=== PATIENT | female | born 1955 | race Caucasian/White ===

== ENCOUNTER 2017-11-18 18:00 | Emergency (ER) | payer OTHER ==
--- NOTE | 2017-11-18 19:25 | UC ---
Abdominal Pain Female HPI - HPI Summary HPI Summary: Pt c/o LLQ pain that began last night. Denies fever or chills, urinary symptoms , diarrhea, nausea and vomiting. Has history of diverticulitis. Last colonoscopy 20 years ago. - History of Current Complaint Chief Complaint: UCAbdominalPain Stated Complaint: ABDOMINAL PAIN Time Seen by Provider: 11/18/17 19:04 Hx Obtained From: Patient ?: No Onset/Duration: Sudden Onset, Lasting Days Timing: Constant Severity Initially: Mild Severity Currently: Moderate Pain Intensity: 6 Location: Discrete At: LLQ Radiates: No Radiates to: LLQ Character: Cramping, Dull, Sharp Aggravating Factor(s): Food, Movement, Deep Breaths Alleviating Factor(s): Nothing Associated Signs and Symptoms: Positive: Decreased Appetite - Risk Factors Ectopic Risk Factor: Negative Ovarian Torsion Risk Factor: Negative Allergies/Adverse Reactions: Allergies Allergy/AdvReac Type Severity Reaction Status Date / Time No Known Allergies Allergy Verified 11/18/17 18:41 Home Medications: Home Medications Eye Drops For Glaucoma 11/18/17 [History] PMH/Surg Hx/FS Hx/Imm Hx Previously Healthy: Yes GI/ History: Diverticulitis - Surgical History Surgical History: Yes Surgery Procedure, Year, and Place: tubal ligation. foot surgery - Family History Known Family History: Positive: Cardiac Disease - Social History Occupation: Retired Lives: With Family Alcohol Use: Occasionally Substance Use Type: None Smoking Status (MU): Never Smoked Tobacco Have You Smoked in the Last Year: No Review of Systems Constitutional: Negative Skin: Negative Eyes: Negative ENT: Negative Respiratory: Negative Cardiovascular: Negative Gastrointestinal: Abdominal Pain Genitourinary: Negative Motor: Negative Neurovascular: Negative Musculoskeletal: Negative Neurological: Negative Psychological: Negative Is Patient Immunocompromised?: No All Other Systems Reviewed And Are Negative: Yes Physical Exam Triage Information Reviewed: Yes Appearance: Pain Distress Vital Signs: Initial Vital Signs Temp 98.4 F 11/18/17 18:35 Pulse 91 11/18/17 18:35 Resp 17 11/18/17 18:35 BP 112/91 11/18/17 18:35 Pulse Ox 100 11/18/17 18:35 Vital Signs Reviewed: Yes Eye Exam: Normal ENT: Positive: Hearing grossly normal Dental Exam: Normal Neck: Positive: Supple Respiratory Exam: Normal Cardiovascular Exam: Normal Abdominal Exam: Other Abdomen Description: Positive: Other: - LLQ pain Musculoskeletal Exam: Normal Neurological Exam: Normal Psychological Exam: Normal Skin Exam: Normal Diagnostics - Radiology No standard instances Radiology Interpretation Completed By: Radiologist - 1. CT findings are most consistent with diverticulitis involving the descending colon and extending into the proximalmost sigmoid colon. Particularly if the patient has never had a screening colonoscopy, direct visualization of the colon is advised after the patient's acute symptoms have resolved. 2. No renal calculi or signs of obstructive uropathy. 3. Additional chronic and degenerative changes noted in the body the report unlikely to be related to the patient's current presentation. Abd Pain Female Course/Dx - Differential Dx/Diagnosis Differential Diagnosis: Diverticulitis, Urinary Tract Infection Provider Diagnoses: DIVERTICULITIS Discharge - Sign-Out/Discharge Documenting (check all that apply): Discharge/Admit/Transfer - Discharge Plan Condition: Stable Disposition: HOME Prescriptions: metroNIDAZOLE * 500 mg PO Q8H #30 tablet Sulfamethox/Trimethoprim DS* [Bactrim DS 800/160 TAB*] 1 tab PO Q12H #20 tab Patient Education Materials: Diverticulitis (ED), Diverticulitis Diet (ED) Referrals: Dina Cruz MD [Primary Care Provider] - As Soon As Possible Additional Instructions: PLEASE NOTE THAT WE ARE RECOMMENDING THAT YOU GO DIRECTLY TO THE [facility]LO[facility] EMERGENCY DEPARTMENT FOR FURTHER EVALUATION AND TREATMENT IF YOUR SYMPTOMS WORSEN. - Billing Disposition and Condition Condition: STABLE Disposition: Home
--- NOTE | 2017-11-18 20:13 | RAD ---
CLINICAL HISTORY: Left flank pain COMPARISON: None TECHNIQUE: Noncontrast CT examination of the abdomen and pelvis from the lung bases through the initial tuberosities. FINDINGS: VISUALIZED LUNG BASES: The visualized lung bases are grossly clear. There is no pleural effusion. ABDOMEN AND PELVIS: Evaluation of the solid organs and vasculature is limited without intravenous contrast. The liver, spleen, pancreas and adrenal glands are grossly normal in appearance. The gallbladder is normal. The kidneys are normal in appearance without focal mass, calcification or signs of hydronephrosis. Evaluation of the gastrointestinal tract is limited without oral contrast. The small and large bowel are not distended.The patient's normal appendix is identified in the right lower quadrant (coronal image 50). Beginning in the distal colon there are diverticula some with inspissated contrast. There is wall thickening involving the distal descending colon measuring 8 mm in thickness with surrounding infiltration of the peritoneal fat. There is no macro perforation of the bowel or drainable fluid collection.. There is no gross retroperitoneal or mesenteric lymphadenopathy. The pelvic viscera is normal in appearance. The abdominal aorta and iliac arteries are normal in course and diameter. Degenerative changes include multilevel loss of intervertebral disc height involving the lower thoracic and lumbar spine.There are no sinister bone lesions. IMPRESSION: 1. CT findings are most consistent with diverticulitis involving the descending colon and extending into the proximalmost sigmoid colon. Particularly if the patient has never had a screening colonoscopy, direct visualization of the colon is advised after the patient's acute symptoms have resolved. 2. No renal calculi or signs of obstructive uropathy. 3. Additional chronic and degenerative changes noted in the body the report unlikely to be related to the patient's current presentation.
[2017-11-18] MEDS ORDERED: metroNIDAZOLE TAB* 250 MG PO ONE (20:17)
[2017-11-18] MEDS ORDERED: Sulfamethox/Trimethoprim DS 800/160* TAB PO ONE (20:18)
== END 2017-11-18 20:26 | disposition home or self-care (01) ==
LOC: UCCORT 18:00
DX: K57.92 Diverticulitis of intestine, part unspecified, without perforation or abscess without bleeding (principal); Z87.19 Personal history of other diseases of the digestive system
CPT/HCPCS: 74176; 81003; 99202; A9270-GY; G0463